=== PATIENT | female | born 1945 | race Caucasian/White ===

== ENCOUNTER 2017-03-28 09:52 | Day surgery (SDC) | payer MEDICARE ==
[2017-03-25 09:47] LABS: HEMATOCRIT 42.5 % (36.0-48.0)
[2017-03-25 10:00] LABS: BUN (BLOOD UREA NITROGEN) 15 MG/DL (6-23); CALCIUM, SERUM 9.1 MG/DL (8.5-10.4); CHLORIDE, SERUM 107 MMOL/L (96-112); CO2 (CARBON DIOXIDE) 31 MMOL/L (24-34); CREATININE 0.93 MG/DL (0.55-1.02); GFR AFRICAN AMERICAN 72 ML/MIN (>=60); GFR NON AFRICAN AMERICAN 62 ML/MIN (>=60); GLUCOSE, SERUM 83 MG/DL (60-99); POTASSIUM, SERUM 4.2 MMOL/L (3.5-5.3); SODIUM, SERUM 144 MMOL/L (135-148)
--- NOTE | ~2017-03-28 | OP ---
Record Of Operation [facility] [address] [place]. [address] NAME: ALEXA JACOBSEN : 47 STATUS : [facility]#: [id number] AGE: 71 ADM/REG DATE : 03/28/17 MR#: [id number] REPORT SERV DATE: 04/15/17 DICTATED BY: TIFFANI PATRICK DATE: 04/15/17 REPORT STATUS : Draft TRANSCRIBED BY: MODEnedina DATE: 04/15/17 DATE OF PROCEDURE: 03/28/2017 PREOPERATIVE DIAGNOSES: 1. Left talonavicular joint painful hardware. 2. Left navicular cuneiform joint arthritis. POSTOPERATIVE DIAGNOSES: 1. Left talonavicular joint painful hardware. 2. Left navicular cuneiform joint arthritis. PROCEDURE: Removal of left painful hardware to the talonavicular joint. PROCEDURE: 1. Left navicular cuneiform joint arthrodesis with calcaneal bone autografting with bone marrow concentrate. 2. Retrieval of left calcaneal bone autograft. 3. Left retrieval of bone marrow concentrate from the calcaneus. SURGEON: Karo Patrick, BerthaPEstherM. ANESTHESIA: General local anesthetic. ESTIMATED BLOOD LOSS: Minimal. COMPLICATION: None. INJECTABLES: Approximately 30 mL of a 1:1 mixture of Xylocaine plain and 0.5% Marcaine plain. MATERIALS: Include 2-0 Vicryl, 4-0 Vicryl, calcaneal bone autograft, Arthrex allograft sponge, bone sponge, bone marrow concentrate, Arthrex 4.5 cannulated cancellous screw, Arthrex compression plate. PROCEDURE IN DETAIL: Under mild sedation, the patient was brought to the operating room and placed on the operating room table in supine position. Following general anesthesia, local anesthesia obtained about the patient's left foot and ankle. Left foot, ankle, and lower leg were scrubbed, prepped, and draped in usual aseptic manner. Attention was directed to the procedure. Procedure #1 is left bone marrow aspiration. Attention directed to the lateral aspect of the patient's calcaneal wall where a small stab incision was made overlying the lateral calcaneal body. Blunt dissection was continued down to the level of the lateral cortical wall of the calcaneus. At this time, the bone marrow aspirate kit was opened, and a trocar and cannula were inserted into the calcaneus. The trocar was removed as the bone marrow aspirate cannula was left in place. At this time, approximately 60 to 80 mL of bone marrow Record Of [place] [id number] [facility] [place]. [address] NAME: ALEXA JACOBSEN : 47 STATUS : [facility] PAT#: [id number] AGE: 71 ADM/REG DATE : 03/28/17 MR#: [id number] REPORT SERV DATE: 04/15/17 DICTATED BY: TIFFANI PATRICK DATE: 04/15/17 REPORT STATUS : Draft TRANSCRIBED BY: MODL DATE: 04/15/17 aspiration was performed. At this time, it was placed on the back table for preparation, and tourniquet was then inflated. Attention was directed to the next procedure. Next procedure after the bone marrow aspiration is removal of left painful hardware to the left talonavicular joint. Attention was directed to the dorsal medial aspect of the patient's talonavicular and navicular cuneiform joint where a linear dorsal medial incision made along the course of the talar head, navicular, and cuneiform medially. Incision was deepened to subcutaneous tissue with care being taken to identify and retract all vital neurovascular structures. All bleeders were cauterized and ligated as necessary. With deep retraction to the anterior tibial tendon, a linear capsular incision was made overlying the talonavicular and navicular cuneiform joints. Blunt dissection was continued down to the level of the talar neck and head. A periosteal elevator was utilized to expose the previously placed compression screw. This was removed easily. The talonavicular joint was fused. Attention now was directed to the next procedure. Next procedure is left navicular cuneiform joint arthrodesis with internal fixation. At this time, dissection continued overlying the navicular cuneiform joint with deep retraction of the anterior tibial tendon, and joint distraction ensued to the navicular cuneiform joint. Curette was utilized to dissect the remaining cartilage where there was significant collagenous loss present and arthritic changes present. Copious irrigation ensued. Removal with a combination of curettage, burring, and subchondral drilling ensued with subchondral bleeding appreciated. At this time, attention directed to the next procedure. Next procedure is calcaneal bone autograft retrieval. At this time, attention was redirected to lateral aspect of the calcaneus where a small stab incision was made to lateral calcaneal wall. Blunt dissection was continued down to the level of the calcaneal wall where a Jamshidi bone biopsy was performed in order to retrieve calcaneal bone autograft. After retrieval, attention was redirected to the fusion site. It should be noted that the Arthrex allograft sponge had been soaking in the bone marrow aspirate on the back table and the calcaneal bone autograft. The Arthrex bone allograft sponge with bone marrow concentrate was then placed within the navicular cuneiform joint. The invasive distraction was removed, and fixation ensued with Arthrex 4.5 cancellous screw as well as a dorsal plate from Arthrex as well. Excellent compression noted. Fluoroscopy confirmed good positioning, and attention directed to closure where the capsular and deep fascia tissues reapproximated and coapted using 2-0 and 4-0 Vicryl, subcutaneous tissue reapproximated and coapted using 4-0 Vicryl, and skin was reapproximated and coapted utilizing 4-0 nylon in an interrupted and continuous suture technique. A well- padded sterile dressing was placed about the patient's left foot and ankle. Well-padded posterior splint was also applied. The patient tolerated the procedure and anesthesia well and was transferred to the recovery room. Vital signs stable. Vascular status intact to all toes. Following a period of postoperative monitoring, the patient will be discharged home with the following written and oral postoperative instructions. 1. Keep dressings clean, dry, and intact. 2. Strict nonweightbearing at all times. 3. Ice and elevate as directed. 4. Take medications as prescribed and will follow up with Dr. Patrick in seven to 14 days. ANGELA/MODL [place] Of [place] [address] [place]. [address] NAME: ALEXA JACOBSEN : 47 STATUS : [facility] PAT#: [id number] AGE: 71 ADM/REG DATE : 03/28/17 MR#: [id number] REPORT SERV DATE: 04/15/17 DICTATED BY: TIFFANI PATRICK DATE: 04/15/17 REPORT STATUS : Draft TRANSCRIBED BY: CHARLIE DATE: 04/15/17 Bertha VarghesePModesto / [id number]
[~2017-03-28 09:52] MED LIST: ASAB PO; FOLIC PO; METHOC500B PO; MOBIC15 MG PO; MTX2.5 PO; MUCINEX600 MG PO; NASONEX NAS; NEUR600 PO; NORCO1 TA1 PO; NORV5 PO; OTC SLEEP AID; PLAQ200B PO; PRILO PO; VITAMIN B-121000 MC1 SL
== END 2017-03-28 20:10 | disposition home or self-care (01) ==
LOC: SDC 09:52
PROVIDERS: Podiatrist Foot & Ankle Surgery
PROC: 0SGL04Z Fusion of Left Tarsometatarsal Joint with Internal Fixation Device, Open Approach (ICD-10-PCS; 2017-03-28)
PROC: 079T3ZX Drainage of Bone Marrow, Percutaneous Approach, Diagnostic (ICD-10-PCS; 2017-03-28)
PROC: 2W5 Placement, Anatomical Regions, Removal (ICD-10-PCS; principal; 2017-03-28 11:45)
PROC: 0SPL04Z Removal of Internal Fixation Device from Left Tarsometatarsal Joint, Open Approach (ICD-10-PCS; 2017-03-28 11:45)
DX: M13.872 Other specified arthritis, left ankle and foot (principal); I10 Essential (primary) hypertension; K21.9 Gastro-esophageal reflux disease without esophagitis; F17.210 Nicotine dependence, cigarettes, uncomplicated; T84.84XA Pain due to internal orthopedic prosthetic devices, implants and grafts, initial encounter; Z88.5 Allergy status to narcotic agent; Z88.1 Allergy status to other antibiotic agents
CPT/HCPCS: 76000; 80048; 84484; 85014; 85018; 88300; 93005; A9270-GY; C1713; J0690; J2405; J2550; J3010